=== PATIENT | male | born 1970 | race Caucasian/White ===

== ENCOUNTER 2019-02-14 11:32 | Day surgery (SDC) | payer OTHER ==
[~2019-02-14 11:32] MED LIST: Dexamethasone IV* 4 MG/ML 1 ML (4 MG) IV SLOW PU ONE; Famotidine IV* 10 MG/ML 2 ML (20 mg) IV ONE; Lactated Ringers 1000 ML Bag* 1,000 ML IV SCH
[2019-02-14] MEDS ORDERED: Famotidine IV* 10 MG/ML 2 ML (20 mg) ONE (13:20)
[2019-02-14] MEDS ORDERED: ceFAZolin 2 GM in NS PREMIX(*) 2 GM/100 ML BAG IVPB ONE (13:20)
[2019-02-14] MEDS ORDERED: Dexamethasone IV* 4 MG/ML 1 ML (4 MG) ONE (13:20)
[2019-02-14] MEDS ORDERED: fentaNYL* 50 MCG/ML 2 ML VIAL (100 MCG VIAL) ONE ×4 (16:35→20:54)
[2019-02-14] MEDS ORDERED: Midazolam* 1 MG/ML 5 ML VIAL (5 MG) ONE (16:35)
[2019-02-14] MEDS ORDERED: Propofol* 10 MG/ML 20 ML BTL ONE (16:36)
[2019-02-14] MEDS ORDERED: Lidocaine 2% PF * 5 ML VIAL ONE (16:36)
[2019-02-14] MEDS ORDERED: Ketorolac INJ* 30 MG/ML 1 ML VIAL ONE (17:02)
[2019-02-14] MEDS ORDERED: Bupivacaine 0.25% SDV PF* 10 ML VIAL INJ ONE (17:17)
[2019-02-14] MEDS ORDERED: Bupivacaine 0.5% W/EPI SDV* 30 ML VIAL ONE (17:21)
[2019-02-14] MEDS ORDERED: Mineral Oil Sterile, TOPICAL* 25 ML BTL ONE (18:32)
[2019-02-14] MEDS ORDERED: KETAMINE HCL* 50 MG/ML 10 ML VIAL ONE (18:44)
[2019-02-14] MEDS ORDERED: Ondansetron INJ* 2 MG/ML VIAL ONE (19:21)
[2019-02-14] MEDS ORDERED: oxyCODONE/Acetamin 5/325 MG* TAB ONE (20:54)
[2019-02-14] MEDS ORDERED: HYDROcodone/ACETAMIN 5-325 MG* 1 TAB PO PRN (20:54)
[2019-02-14] MEDS ORDERED: oxyCODONE/Acetamin 5/325 MG* TAB PO PRN (20:54)
[2019-02-14] MEDS ORDERED: DiMENhydriNATE IV* 50 MG/ML VIAL IV PUSH PRN (20:54)
[2019-02-14] MEDS ORDERED: Naloxone* 0.4 MG/ML 1 ML VIAL IV PRN (20:54)
[2019-02-14] MEDS: fentaNYL* 50 MCG/ML 2 ML VIAL (100 MCG VIAL) IV PRN ×2 (20:59→21:46)
[2019-02-14 22:29] VITALS: BP 105/55
--- NOTE | 2019-02-15 21:12 | OP ---
OPERATIVE NOTE: DATE OF OPERATION: 02/14/19 DATE OF : 72 SURGEON: Dr. Edwin Cifuentes. MOTION STUDY ENGINEER: TIFFANY Jones. A physician membership assistant was required for the length of procedure for assistance with patient positioning, retraction, and closure. ANESTHESIOLOGIST: Dr. Digna Ring. ANESTHESIA: General anesthesia. PRE-OP DIAGNOSIS: Left elbow distal biceps tendon rupture, chronic. POST-OP DIAGNOSIS: Left elbow distal biceps tendon rupture, chronic. OPERATIVE PROCEDURES: 1. Open left elbow distal biceps tendon reconstruction with Achilles allograft. 2. Modifier 22 for unusual or complex procedure given the nature of this injury being chronic and this being fixed with an Achilles allograft reconstruction rather than with a direct repair. ANTIBIOTICS: Ancef 2 g IV. IV FLUIDS: See Anesthesia note. SKIN TO SKIN TIME: Approximately 147 minutes. TOURNIQUET TIME: 137 minutes. The tourniquet was up first for 120 minutes, followed by a 10 minutes of tourniquet holiday, followed by an additional 17 minutes. The tourniquet was set at 250 mmHg, was sterile and was on the left upper arm. SPECIMEN: None. IMPLANTS: Arthrex distal biceps repair kit was utilized and included a biceps distal repair button along with a 7 x 10 mm Biocomposite interference screw. We also used an Achilles tendon allograft. ESTIMATED BLOOD LOSS: Minimal. COMPLICATIONS: None. INDICATIONS FOR PROCEDURE: The patient is a 48-year-old man, a prisoner, who injured his left elbow on 10/22/18, almost 4 months preoperatively. There was a delay in the patient presenting to a healthcare worker. The patient saw me on 01/07/19. We ordered an MRI to confirm the diagnoses and set the patient up for surgery. Given the length of time that it passed since his initial injury, I anticipated a need for allograft and reconstruction rather than repair. The patient and I talked at some length about distal biceps injuries and their management nonoperatively and operatively. We spoke about direct repair and reconstruction. We spoke about pros and cons of nonoperative and operative management. We spoke about risks and potential complications of surgery including nerve and blood vessel injuries, especially a possible palsy related to the lateral antebrachial cutaneous nerve or rather sensory changes related to this. I did have a high incidence with repairs but especially with reconstructions. 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 DESCRIPTION OF PROCEDURE: In preoperative holding, the patient signed a written consent. Operative extremity was marked in preoperative holding. The patient was taken back to the operating room and kept on stretcher. Hand table was applied. The patient was sedated and intubated. The left upper extremity was prepped and draped. Surgical time-out was performed. Esmarch was applied and the tourniquet was elevated. A longitudinal skin incision in the proximal forearm was made overlying the bicipital tuberosity. Later in the case, I extended this through the upper arm , in a Z-shape so as to respect the elbow flexion crease. Dissected down into the subcutaneous tissues. Identified appropriate vasculature. I first identified the biceps tendon and muscle proximally. These were severely retracted and not significantly mobile. I next identified the lateral antebrachial cutaneous nerve and I identified it along the length of the surgical incision. It was certainly a scarred to the biceps tendon and muscle proximally. I first went about mobilizing the biceps muscle. I dissected around it circumferentially and mobilized it. There was some minimal excursion of it, but it could certainly not be repaired. I next dissected distally down to the bicipital tuberosity. I debrided a little bit of bursal tissue remaining. I next placed my Beath pin in the proximal radius. A mini C-arm was used to confirm excellent placement of pin. I then drilled over it my tunnel. I had my Achilles tendon thawed. I shaped it appropriately. I placed multiple stitches using a FiberLoop suture on it and loaded a button. I returned to the arm and placed my allograft into my proximal radius tunnel and slipped a button. I tied a knot. I next placed my interference screw fixation and tied another knot. A mini C-arm imaging demonstrated excellent position of the button. I should say that the visibility was incredible during this procedure with really no bleeding until the tourniquet was let down a little bit later. With my allograft in place and positioned appropriately proximally and distally , I brought it above superficial to the biceps muscle and tendon. It should be noted that previously I had dissected the lateral antebrachial cutaneous nerve very proximally to move it away from the impending repair, reconstruction and minimize any postoperative lateral antebrachial cutaneous nerve symptoms. I repaired the allograft to the biceps tendon and muscle with several Krackow whip stitches using FiberWire #2 suture along with a handful of simple stitches using Vicryl 0 and FiberWire #2 suture. These stitches were placed with the elbow in approximately 60 to 70 degrees of flexion to set appropriate tension. At this point at 120 minutes of tourniquet time, the tourniquet was dropped. There was some oozing as I put the last several stitches in the tenodesis site between the allograft and biceps. After 10 minutes, we reinflated the tourniquet. I closed the subcutaneous tissue with Vicryl 3-0 suture. Closed the skin with keith, Xeroform, 4x4s, sterile Webril, followed by a splint with the elbow in 90 degrees of flexion in the forearm in supination. A posterior slab was applied followed by sugar tong with plaster. Tourniquet was dropped. The arm was placed in a sling. I added a modifier 22 to the billing for this procedure just due to the nature of this being a chronic injury requiring a significant period of time of slow careful dissection of appropriate blood vessels and neurologic structures. The patient was awakened, extubated and transferred to the PACU. DISPOSITION: The patient will return to the nursing home when medically stable. The patient will remain in the splint at all times. He is not to remove that. He can use the sling as needed. Due to the allograft being used and the patient being a prisoner, I instructed the nursing home staff to have him on Keflex 500 mg by mouth 3 times daily for 7 days postoperatively for prophylaxis from infection. The patient will follow up with me in approximately 2-1/2 weeks postoperatively. At that time, we will remove the keith and we will either place the patient in a cast or a brace depending on how stiff or not his elbow is. I suspect for a protection, we will keep the patient in a cast for some period of time, but we will see. Thereafter, at week 6, the patient will start to mobilize at elbow, regain extension and then proceed along a rehabilitation plan similar to that of a standard direct biceps tendon repair. [id number] #: [id number] VARGAS
== END 2019-02-14 22:00 ==
LOC: OR 11:32 → EEVIPCON 13:15 → OR 22:00
PROVIDERS: ATTEND Orthopaedic Surgery
DX: S46.212A Strain of muscle, fascia and tendon of other parts of biceps, left arm, initial encounter (principal); S56.812A Strain of other muscles, fascia and tendons at forearm level, left arm, initial encounter; X58.XXXA Exposure to other specified factors, initial encounter; Y92.149 Unspecified place in prison as the place of occurrence of the external cause
CPT/HCPCS: 76000; A9270-GY; C1713; C1768; J0690; J1100; J1885; J2250; J2405; J2704; J3010; J3490